=== PATIENT | male | born 1990 | race Caucasian/White ===

== ENCOUNTER 2018-02-25 13:18 | Emergency (ER) | payer OTHER ==
[~2018-02-25] VITALS: Ht 162.6 cm; Wt 80.0 kg
[2018-02-25 13:26] VITALS: BP 142/78; PULSE 69; RESP 16; TEMP 98.3; O2SAT 98
--- NOTE | 2018-02-25 13:47 | PD ---
HPI Chief Complaint: Injury Time Seen by Provider: 13:41 Travel History International Travel<30 days: No Contact w/Intl Traveler<30days: No Traveled to known affect area: No History of Present Illness HPI 27-year-old [place] male presents emergency department with injury to the left lateral ankle. Patient was playing basketball when he twisted it. He now has pain and swelling to the left lateral ankle. He has difficulty bearing weight. There is no open wound or abrasion. He denies numbness, tingling or loss of function. Pain is 8 out of 10. He has no known drug allergies. [facility] Social History Alcohol Use: Yes Tobacco Use: No Substance Use: No Allergies-Medications (Allergen,Severity, Reaction): Coded Allergies: No Known Allergies (Unverified , 02/25/18) Review of Systems Except as stated in HPI: all other systems reviewed are Neg General / Constitutional: No: Fever Eyes: No: Visual changes HENT: No: Headaches Cardiovascular: No: Chest Pain or Discomfort Respiratory: No: Shortness of Breath Gastrointestinal: No: Abdominal Pain Genitourinary: No: Dysuria Musculoskeletal: Positive: Arthralgias, Limited ROM, Pain Skin: No Rash Neurologic: No: Weakness Psychiatric: No: Depression Endocrine: No: Polydipsia Hematologic/Lymphatic: No: Easy Bruising Physical Exam Narrative GENERAL: Patient appears in mild to moderate distress per SKIN: Warm and dry. Normal color. Normal turgor. No abrasions or open wounds. There is ecchymosis noted over the left lateral malleolus per HEAD: Atraumatic. Normocephalic. EYES: Pupils equal and round. No scleral icterus. No injection or drainage. ENT: No nasal bleeding or discharge. Mucous membranes pink and moist. Pharynx is clear. Airways patent. NECK: Trachea midline. Supple and nontender. CARDIOVASCULAR: Regular rate and rhythm. RESPIRATORY: No accessory muscle use. Clear to auscultation. Breath sounds equal bilaterally. MUSCULOSKELETAL: Extremities without clubbing, cyanosis, or edema. No obvious deformities. Patient has pain with palpation over the left lateral malleolus. Range of motion is intact although limited by pain. No neurovascular deficiencies are noted. NEUROLOGICAL: Awake and alert. No obvious cranial nerve deficits. Motor grossly within normal limits. Five out of 5 muscle strength in the arms and legs. Normal speech. PSYCHIATRIC: Appropriate mood and affect; insight and judgment normal. Data Data Last Documented VS Vital Signs Date Time Temp Pulse Resp B/P (MAP) Pulse Ox O2 Delivery O2 Flow Rate FiO2 02/25/18 13:26 98.3 69 16 142/78 (99) 98 Orders Orders Ankle, Complete ([id number]) (02/25/18 13:42) Ice/Cold Pack (02/25/18 13:42) Splint Or Brace Apply/Monitor (02/25/18 14:29) Ibuprofen (Motrin) (02/25/18 14:30) Crutches (02/25/18 14:30) MDM Medical Decision Making Medical Screen Exam Complete: Yes Emergency Medical Condition: Yes Differential Diagnosis Left ankle pain. Left ankle sprain. Left ankle fracture. Trip and fall and sports. Narrative Course Patient appears medically stable at time of exam. X-rays of the left ankle are ordered. Ice pack is applied to the injured area. X-ray shows no acute fracture or dislocation per radiologist. Patient is placed in a ankle stirrup splint and crutches. Patient is given 800 mg ibuprofen p.o. now. Patient is given a prescription for ibuprofen 800 mg 3 times daily with food # 30. Patient did wear the splint and crutches as long as needed. Follow-up as needed. Diagnosis Primary Impression: Moderate left ankle sprain Qualified Codes: S93.402A - Sprain of unspecified ligament of left ankle, initial encounter Patient Instructions: Ankle Sprain (ED), Ankle Sprain Exercises (GEN), Ankle Stirrup Splint (ED), Crutch Instructions (ED), General Instructions Additional Instructions: X-ray shows no acute fracture or dislocation per radiologist. Patient is placed in a ankle stirrup splint and crutches. Patient is given 800 mg ibuprofen p.o. now. Patient is given a prescription for ibuprofen 800 mg 3 times daily with food # 30. Patient did wear the splint and crutches as long as needed. Follow-up as needed. Med/Other Pt SpecificInfo: Prescription(s) given Disposition: 01 DISCHARGE HOME Condition: Stable Rashawn Ohara Feb 25, 2018 13:47
--- NOTE | 2018-02-25 14:25 | RADRPT ---
EXAM DATE/TIME: 02/25/2018 14:11 [facility] COMPARISON: No previous studies available for comparison. INDICATIONS : Pain during basketball. MEDICAL HISTORY : None. SURGICAL HISTORY : None. ENCOUNTER: Initial ACUITY: 1 day PAIN SCORE: 3/10 LOCATION: Left ankle. FINDINGS: Three view exam was performed of the left ankle. The bony structures are in normal alignment. No ev idence of acute fracture or malalignment. There is soft tissue swelling over the lateral malleolus. T he ankle mortise is intact. No radiopaque foreign bodies are seen. Bony mineralization is normal. CONCLUSION: Soft tissue swelling over the lateral malleolus with no acute fracture or malalignmen tTrav Leo MD on February 25, 2018 at 14:23 Board Certified Radiologist. This report was verified electronically.
[2018-02-25] MEDS ORDERED: IBUPROFEN 800 MG TAB PO ONE (14:30)
[2018-02-25] MEDS ORDERED: IBUP1TAB7 PO (14:41)
== END 2018-02-25 15:00 | disposition home or self-care (01) ==
LOC: NEPD 13:18
DX: S93.402A Sprain of unspecified ligament of left ankle, initial encounter (principal); X50.1XXA Overexertion from prolonged static or awkward postures, initial encounter; Y93.67 Activity, basketball
CPT/HCPCS: 73610; 99283; E0113; L1906